=== PATIENT | male | born 2000 | race American Indian/Alaskan Native ===

== ENCOUNTER 2018-03-17 11:38 | Outpatient (CLI) | payer BC ==
[2018-03-17 12:18] LABS: Hematocrit 45.4 % (35.5-45.6); Mean Corpuscular HGB Conc 35 % (32-34); Mean Corpuscular Hemoglobin 29 pg (28-32); Mean Corpuscular Volume 83 fl (84-94); Platelet Count 181 K/mm3 (140-440); Red Blood Count 5.51 M/mm3 (3.65-5.03); Red Cell Distribution Width 13.9 % (13.2-15.2)
[2018-03-17 12:44] LABS: Alanine Aminotransferase 43 units/L (7-56); Albumin 4.5 g/dL (3.9-5); BUN/Creatinine Ratio 13; Blood Urea Nitrogen 12 mg/dL (9-20); Calcium 9.7 mg/dL (8.4-10.2); Hemolysis Index 3
== END 2018-03-17 11:39 | disposition home or self-care (01) ==
LOC: LAB 11:38
PROVIDERS: ATTEND Internal Medicine
DX: Z00.01 Encounter for general adult medical examination with abnormal findings (principal); R79.89 Other specified abnormal findings of blood chemistry
CPT/HCPCS: 36415; 80053; 85027

== ENCOUNTER 2020-02-04 10:53 | Emergency (ER) | payer BC ==
[2020-02-04 11:06] VITALS: BP 131/77
--- NOTE | 2020-02-04 12:19 | Emergency Department Report ---
ED General Adult HPI - General Chief complaint: Arrhythmia/Palpitations Stated complaint: HEART RACING Time Seen by Provider: 02/04/20 12:02 Source: patient Mode of arrival: Ambulatory Limitations: No Limitations - History of Present Illness Initial comments: 19-year-old -[place] male presents to the emergency room stating that his heart has been racing and he feels like he has gas around his heart. Patient reports that this been going on intermittently for the last few days. Patient endorsed that he is been dealing with depression saw his primary care provider yesterday and they replaced him on Effexor. Patient states that he started that yesterday. Patient states that before he starts have an this heart racing he will start to have a headache shortness of breath and then palpations will present. Patient states that it does not last long. Patient reports is more commonly when he lays down to go to sleep. Patient does admit to having rageful thoughts and anxiety. Patient reports that he has been having feelings of hurting himself for quite a while and had discussed this with his primary care provider. Onset/Timin -: days(s) Location: chest Severity scale (0 -10): 3 Quality: other (Palpitations) Consistency: intermittent Associated Symptoms: other (Anxiety) Treatments Prior to Arrival: none - Related Data Allergies Allergy/AdvReac Type Severity Reaction Status Date / Time No Known Allergies Allergy Verified 02/04/20 10:56 ED Review of Systems ROS: Stated complaint: HEART RACING Other details as noted in HPI Comment: All other systems reviewed and negative ED Past Medical Hx - Past Medical History Previous Medical History?: No - Surgical History Additional Surgical History: ARM SURGERY - Social History Smoking Status: Never Smoker Substance Use Type: Marijuana ED Physical Exam - General Limitations: No Limitations General appearance: alert, in no apparent distress - Head Head exam: Present: atraumatic, normocephalic - Eye Eye exam: Present: normal appearance - ENT ENT exam: Present: mucous membranes moist - Neck Neck exam: Present: normal inspection - Respiratory Respiratory exam: Present: normal lung sounds bilaterally. Absent: chest wall tenderness - Cardiovascular Cardiovascular Exam: Present: tachycardia - GI/Abdominal GI/Abdominal exam: Present: soft, normal bowel sounds. Absent: distended, tenderness - Extremities Exam Extremities exam: Present: normal inspection, full ROM. Absent: tenderness - Back Exam Back exam: Present: normal inspection. Absent: full ROM, tenderness - Expanded Neurological Exam Expanded Patient oriented to: Present: person, place Cranial nerves: EOM's Intact: Normal, Gag Reflex: Normal, Tongue Deviation: Normal, Nystagmus: Normal, Facial Sensation: Normal, Facial Palsy with Forehead Movement: Normal, Facial Palsy without Forehead Movement: Normal Cerebellar function: Finger to Nose: Normal, Heel to Jackson: Normal, Romberg: Normal Upper motor neuron: Deshawn Neglect: Normal, Pronator Drift: Normal, Sensory Extinction: Normal Sensory exam: Upper Extremity Light Touch: Normal, Upper Extremity Pin Prick: Normal, Upper Extremity Temperature: Normal, UE 2 Point Discrimination: Normal, Lower Extremity Light Touch: Normal, Lower Extremity Pin Prick: Normal, Lower Extremity Temperature: Normal, LE 2 Point Discrimination: Normal Motor strength exam: RUE: 4, LUE: 4, RLE: 4, LLE: 4 Best Eye Response (Lucia): (4) open spontaneously Best Motor Response ([place]): (6) obeys commands Best Verbal Response ([place]): (5) oriented [place] Total: 15 - Psychiatric Psychiatric exam: Present: depressed - Skin Skin exam: Present: warm, dry, intact, normal color. Absent: rash ED Course Vital Signs 02/04/20 11:06 Temperature 99.6 F Pulse Rate 99 H Respiratory 20 Rate Blood Pressure 131/77 O2 Sat by Pulse 100 Oximetry ED Medical Decision Making - Lab Data Result diagrams: 02/04/20 12:45 02/04/20 12:45 Laboratory Tests 02/04/20 02/04/20 02/04/20 12:45 12:45 12:45 WBC 7.2 RBC 5.60 H Hgb 16.2 H Hct 45.7 H MCV 82 L MCH 29 MCHC 35 H RDW 13.9 Plt Count 190 Lymph % (Auto) 21.4 Edmunds % (Auto) 6.1 Eos % (Auto) 1.8 Baso % (Auto) 0.7 Lymph # 1.5 Edmunds # 0.4 Eos # 0.1 Baso # 0.1 Seg Neutrophils % 70.0 Seg Neutrophils # 5.0 Sodium 139 Potassium 4.6 Chloride 102.8 Carbon Dioxide 25 Anion Gap 16 BUN 10 Creatinine 0.9 Estimated GFR > 60 BUN/Creatinine Ratio 11 Glucose 100 Calcium 10.3 H Total Bilirubin 0.90 AST 29 ALT 46 Alkaline Phosphatase 66 Total Protein 7.3 Albumin 4.8 Albumin/Globulin Ratio 1.9 TSH 0.624 - Medical Decision Making 19-year-old -[place] male presents to the emergency room stating that his heart has been racing and he feels like he has gas around his heart. P jaktam reports that this been going on intermittently for the last few days. Patient endorsed that he is been dealing with depression saw his primary care provider yesterday and they replaced him on Effexor. Patient states that he started that yesterday. Patient states that before he starts have an this heart racing he will start to have a headache shortness of breath and then palpations will present. Patient states that it does not last long. Patient reports is more commonly when he lays down to go to sleep. Patient does admit to having rageful thoughts and anxiety. Patient reports that he has been having feelings of hurting himself for quite a while and had discussed this with his primary care provider. Basic labs were ordered which all fairly looks well. Mental health evaluation has been placed. EKG shows ST elevation probable normal early repolarization pattern heart rate of 90. Patient was able to speak to mental health educator Faviola. We discussed maybe having patient do a bed routine with either Google or D[employer]a melatonin prior to bedtime. Turning off all electronic devices 30 minutes prior to laying down. Critical care attestation.: If time is entered above; I have spent that time in minutes in the direct care of this critically ill patient, excluding procedure time. ED Disposition Clinical Impression: Anxiety and depression Disposition: DC-01 TO HOME OR SELFCARE Is pt being admited?: No Does the pt Need Aspirin: No Condition: Stable Instructions: Anxiety (ED) Additional Instructions: Do a bed routine with either Google or D[employer]a melatonin prior to bedtime. Turning off all electronic devices 30 minutes prior to laying down. Referrals: PRIMARY CARE, [Primary Care Provider] - 3-5 Days Your, primary care provider [Other] - 3-5 Days [facility] [Outside] - 3-5 Days [facility] [Outside] - 3-5 Days Forms: Accompanied Note
--- NOTE | 2020-02-04 12:32 | XRay Report ---
CHEST 2 VIEWS INDICATION / CLINICAL INFORMATION: Chest Pain. COMPARISON: None available. FINDINGS: SUPPORT DEVICES: None. HEART / MEDIASTINUM: No significant abnormality. LUNGS / PLEURA: No significant pulmonary or pleural abnormality. No pneumothorax. ADDITIONAL FINDINGS: No significant additional findings. IMPRESSION: 1. No acute findings. Signer Name: Chandra Gomez MD Signed: 02/04/2020 12:27 PM Workstation Name: [id number]
[2020-02-04 13:19] LABS: Basophils # (Auto) 0.1 K/mm3 (0.0-0.1); Basophils % (Auto) 0.7 % (0.0-1.8); Eosinophils # (Auto) 0.1 K/mm3 (0.0-0.4); Eosinophils % (Auto) 1.8 % (0.0-4.3); Hematocrit 45.7 % (35.5-45.6); Hemoglobin 16.2 gm/dl (11.8-15.2); Lymphocytes # (Auto) 1.5 K/mm3 (1.2-5.4); Lymphocytes % (Auto) 21.4 % (13.4-35.0); Mean Corpuscular HGB Conc 35 % (32-34); Mean Corpuscular Volume 82 fl (84-94); Monocytes # (Auto) 0.4 K/mm3 (0.0-0.8); Monocytes % (Auto) 6.1 % (0.0-7.3); Platelet Count 190 K/mm3 (140-440); Red Cell Distribution Width 13.9 % (13.2-15.2)
[2020-02-04 13:34] LABS: Alanine Aminotransferase 46 units/L (7-56); Albumin 4.8 g/dL (3.9-5); BUN/Creatinine Ratio 11; Blood Urea Nitrogen 10 mg/dL (9-20); Calcium 10.3 mg/dL (8.4-10.2); Hemolysis Index 7
== END 2020-02-04 15:57 | disposition home or self-care (01) ==
LOC: ED 10:53
DX: F41.9 Anxiety disorder, unspecified (principal); F32.9 Major depressive disorder, single episode, unspecified; F12.90 Cannabis use, unspecified, uncomplicated; Z98.890 Other specified postprocedural states
CPT/HCPCS: 36415; 71046; 80053; 84443; 85025; 93005

== ENCOUNTER 2020-02-04 16:08 | Outpatient (CLI) | payer BC ==
[2020-02-09 12:32] LABS: Vitamin D, 25-OH, D2 <4 ng/mL
== END 2020-02-04 16:09 | disposition home or self-care (01) ==
LOC: LAB 16:08
PROVIDERS: ATTEND Internal Medicine
DX: Z00.00 Encounter for general adult medical examination without abnormal findings (principal)
CPT/HCPCS: 36415; 82306